=== PATIENT | female | born 1950 | race Caucasian/White ===

== ENCOUNTER 2022-05-06 08:44 | Emergency (ER) | payer MEDICARE ==
[2022-05-06] MEDS ORDERED: Ibuprofen 200 MG TAB ONE (09:09)
== END 2022-05-06 10:07 | disposition home or self-care (01) ==
LOC: BURERS 08:44
DX: S92.352A Displaced fracture of fifth metatarsal bone, left foot, initial encounter for closed fracture (principal); S82.832A Other fracture of upper and lower end of left fibula, initial encounter for closed fracture; E03.9 Hypothyroidism, unspecified; E78.00 Pure hypercholesterolemia, unspecified; W19.XXXA Unspecified fall, initial encounter; Y93.01 Activity, walking, marching and hiking; Y92.002 Bathroom of unspecified non-institutional (private) residence as the place of occurrence of the external cause

== ENCOUNTER 2022-06-19 11:48 | Outpatient (CLI) | payer MEDICARE | END 2022-06-19 11:49 | disposition home or self-care (01) | LOC: BURRAD 11:48 | PROVIDERS: ATTEND Family Medicine | DX: S82.832A Other fracture of upper and lower end of left fibula, initial encounter for closed fracture (principal); S92.355A Nondisplaced fracture of fifth metatarsal bone, left foot, initial encounter for closed fracture ==